=== PATIENT | female | born 1960 | race Caucasian/White ===

== ENCOUNTER 2016-10-01 06:29 | Day surgery (SDC) | payer OTHER ==
[2016-09-28 13:20] LABS: A/G RATIO 1.4 (0.7-1.9); ALBUMIN 4.1 G/DL (3.5-5.0); ALKALINE PHOSPHATASE 69 U/L (45-117); BUN (BLOOD UREA NITROGEN) 14 MG/DL (6-23); CALCIUM, SERUM 9.9 MG/DL (8.5-10.4); CHLORIDE, SERUM 106 MMOL/L (96-112); CO2 (CARBON DIOXIDE) 29 MMOL/L (24-34); CREATININE 0.75 MG/DL (0.55-1.02); GFR AFRICAN AMERICAN 105 ML/MIN (>=60); GFR NON AFRICAN AMERICAN 90 ML/MIN (>=60); GLUCOSE, SERUM 97 MG/DL (60-99); POTASSIUM, SERUM 4.2 MMOL/L (3.5-5.3); SGOT(AST) 14 U/L (5-40); SGPT(ALT) 17 U/L (5-65); SODIUM, SERUM 142 MMOL/L (135-148); TOTAL BILIRUBIN 0.6 MG/DL (0-1.2); TOTAL PROTEIN 7.1 G/DL (6.0-8.5)
[2016-09-28 15:12] LABS: HEMATOCRIT 40.7 % (36.0-48.0); HEMOGLOBIN 13.7 g/dL (12.0-16.0)
--- NOTE | ~2016-10-01 | OP ---
Record Of Operation [facility] [address] [place]. [address] NAME: ISAAC GUTIÉRREZ : 62 STATUS : [facility]#: [id number] AGE: 55 ADM/REG DATE : 10/01/16 MR#: [id number] REPORT SERV DATE: 10/01/16 DICTATED BY: HARLEY HERNÁNDEZ DATE: 10/01/16 REPORT STATUS : Draft TRANSCRIBED BY: MODL DATE: 10/01/16 DATE OF PROCEDURE: 10/01/2016 PREOPERATIVE DIAGNOSIS: Chronic cholecystitis with cholelithiasis. POSTOPERATIVE DIAGNOSIS: Chronic cholecystitis with cholelithiasis. PROCEDURE: Laparoscopic cholecystectomy (2-site). SURGEON: Harley Hernández M.D. DESCRIPTION OF OPERATIVE PROCEDURE: The patient was brought to operating suite, placed in supine position, underwent satisfactory general endotracheal anesthesia without incident. The skin of the abdomen was scrubbed, prepped, and draped in usual sterile fashion. 0.5% Marcaine with epinephrine was utilized as supplemental local anesthesia at all intended trocar sites. Initially, an infraumbilical incision was performed dissecting through the skin and subcutaneous tissue. The umbilical fascia was grasped with a Aaron clamp and elevated. A disposable Veress insufflation was inserted through the umbilical fascia into the peritoneal cavity. Intraperitoneal tip location ascertained using saline hanging drop method. CO2 was insufflated for pressures of 15 mmHg throughout the case. After adequate insufflation pressure achieved, Veress needle was removed, disposable bladed shielded 11 mm trocar inserted through the umbilical fascia into the peritoneal cavity, following which a rigid forward-viewing 10 mm laparoscope was inserted. Visualization of the intraabdominal parietes revealed no evidence of injury from initial insufflation or puncture. A cursory examination of the pelvis was normal. Attention was turned to the upper abdomen and an additional 5 mm trocar was placed to the right of falciform ligament. 5 mm grasping instrument was inserted through the umbilical fascia next to the umbilical trocar. The fundus and body of the gallbladder grasped and elevated. The filmy periduodenal and duodenal adhesions to the infundibular portion of the gallbladder were taken down with cautery and blunt dissection. Tabor of Calot was approached, dissection of triangle of Calot was successful, identified and skeletonized the cystic duct, cystic duct-common duct junction, as well as cystic artery. Critical view was obtained. Both of these structures were controlled with multiple applications of Weck 5 mm polymer clip system and divided, then using spatula cautery dissection, the peritoneal attachments to the gallbladder and liver were divided. The gallbladder was removed from the subhepatic space. Hemostasis was assured. The camera was switched to the 5 mm epigastric port. The gallbladder was grasped by its Record Of Operation [address] [address] NAME: ISAAC GUTIÉRREZ : 62 STATUS : [facility] PAT#: [id number] AGE: 55 ADM/REG DATE : 10/01/16 MR#: [id number] REPORT SERV DATE: 10/01/16 DICTATED BY: HARLEY HERNÁNDEZ DATE: 10/01/16 REPORT STATUS : Draft TRANSCRIBED BY: COLBY DATE: 10/01/16 neck withdrawn through the umbilical port. It was opened, aspirated free of bile and then the single large stone was partially crushed and it was delivered intact. Trocars were removed. CO2 was allowed to egress from peritoneal cavity. The umbilicus was closed with [id number] suture of 0 Vicryl, subcutaneous tissue closed thereafter with 4 0 Vicryl, running subcuticular stitch 4-0 Vicryl for the skin. Dermabond skin adhesive placed. The patient tolerated the procedure well and was returned to PACU in stable condition. At the termination of procedure, sponge, needle, lap, and instrument counts were correct x3. ESTIMATED BLOOD LOSS: Less than 10 mL. JACQUELINE/GREGORIAL Harley Hernández M.D. / [id number] CC: Reji Abel M.D.
[~2016-10-01 06:29] MED LIST: CASCARA; LOPREEZA; MIRALAX POWDER1 PKT PO; PRILO PO; SINGULAIR1 PO; SYN125 PO; VENTOLIN HFA; ZYRTEC ALLGY10 MG PO
== END 2016-10-01 12:05 | disposition home or self-care (01) ==
LOC: SDC 06:29
PROVIDERS: Specialist
PROC: 0FT44ZZ Resection of Gallbladder, Percutaneous Endoscopic Approach (ICD-10-PCS; principal; 2016-10-01 07:45)
DX: K80.10 Calculus of gallbladder with chronic cholecystitis without obstruction (principal); D13.5 Benign neoplasm of extrahepatic bile ducts; J45.909 Unspecified asthma, uncomplicated; E03.9 Hypothyroidism, unspecified; K21.9 Gastro-esophageal reflux disease without esophagitis; Z79.899 Other long term (current) drug therapy; Z98.890 Other specified postprocedural states
CPT/HCPCS: 80053; 83615; 85014; 85018; 88304; 93005; A9270-GY; J0690; J1170; J2250; J2370; J2405; J2710; J3010